=== PATIENT | male | born 1955 | race Caucasian/White ===

== ENCOUNTER → 2020-02-14 15:43 | Outpatient (BNVA) | payer OTHER, SELFPAY | PROVIDERS: Visit Provider Hospitalist | DX: Z76.89 Persons encountering health services in other specified circumstances (principal) ==

== ENCOUNTER → 2020-05-29 15:05 | Outpatient (BNVA) | payer OTHER, SELFPAY | PROVIDERS: PCP Internal Medicine; Visit Provider Hospitalist ==

== ENCOUNTER → 2020-07-19 15:05 | Outpatient (BNVA) | payer OTHER, SELFPAY | PROVIDERS: PCP Internal Medicine; Visit Provider Hospitalist ==

== ENCOUNTER → 2020-09-07 13:13 | Outpatient (BNVA) | payer OTHER, SELFPAY | PROVIDERS: PCP Internal Medicine; Visit Provider Hospitalist ==

== ENCOUNTER → 2021-03-08 15:30 | Outpatient (BNVA) | payer OTHER, SELFPAY | PROVIDERS: PCP Internal Medicine; Visit Provider Hospitalist ==

== ENCOUNTER → 2021-09-03 08:20 | Outpatient (BNVA) | payer OTHER, SELFPAY | PROVIDERS: PCP Internal Medicine; Visit Provider Hospitalist | DX: J44.9 Chronic obstructive pulmonary disease, unspecified (principal) ==

== ENCOUNTER → 2022-07-21 09:10 | Outpatient (BNVA) | payer OTHER, SELFPAY | PROVIDERS: PCP Internal Medicine; Visit Provider Hospitalist | DX: Z13.89 Encounter for screening for other disorder (principal) ==

== ENCOUNTER → 2022-09-04 15:26 | Outpatient (BNVA) | payer OTHER, SELFPAY | PROVIDERS: PCP Internal Medicine; Visit Provider Hospitalist | DX: J44.9 Chronic obstructive pulmonary disease, unspecified (principal); J30.9 Allergic rhinitis, unspecified | CPT/HCPCS: 94618 ==

== ENCOUNTER 2022-12-04 15:34 | Outpatient (REF) | payer OTHER, SELFPAY | END 2022-12-04 15:35 | disposition home or self-care (01) | LOC: HO.LAB 15:34 | PROVIDERS: PCP Internal Medicine; Visit Provider Hospitalist | DX: J44.9 Chronic obstructive pulmonary disease, unspecified (principal); J30.9 Allergic rhinitis, unspecified; Z79.899 Other long term (current) drug therapy | CPT/HCPCS: 94010; 99212 ==

== ENCOUNTER 2022-12-04 15:34 | Outpatient (AMB) | payer OTHER, SELFPAY ==
--- NOTE | 2022-12-04 15:42 | MHC.OFFVIS ---
Intake Vital Signs 12/04/22 15:45 Height 5 ft 7 in Weight 190 lb BMI 29.8 Pulse 64 Pulse Source Pulse Oximeter Pulse Oximetry (%) 97 Oxygen Delivery Method Room Air Intake Visit Reasons: COPD Personal Lines Account Executive Required: No Allergies Sulfa (Sulfonamide Antibiotics) Allergy (Mild, Verified 12/04/22 15:42) Dizziness and Upset Stomach HPI HPI Comments History of Present Illness Details The patient is a 67-year-old gentleman with a known history of asthma COPD overlap syndrome, chronic rhinitis. overall he had a good summer working outside. Usually his respiratory symptoms worsen during the winter time. Has had some intermittent coughing nonproductive in nature. Also has chest tightness and wheezing mild in severity. He has not had to use his rescue inhaler more than twice a week. Therefore, will start optimizing his respiratory therapy with his albuterol and budesonide nebulizer therapy as well as continue with the Symbicort. The patient has not had any recent imaging her blood work to review. 05/29/2020 The patient is a telephone visit today. The patient now has COVID-19 infection. He was placed on antibiotics and also Decadron. He did feel better while on the medicine. Completed the Co drawn he started to notice increasing shortness of breath. His major complaint is also significant fatigue moderate severity. He is sleeping more. I did reassure him that this is a common side effect after having COVID and he should continue to feel better with time. In the meantime he is using his inhaler more often. He felt the budesonide was effective for him. Therefore we will refill the prescription. Patient also needs to continue using his albuterol nebulizer. In the meantime the patient will continue a small dose of prednisone 10 mg for 2 weeks. I will also request that he undergo a chest x-ray and blood work to further address his ongoing symptoms. 07/19/2020 the patient has a telephone visit. The patient now has recovered from COVID. Overall he is doing okay. He is back to working in [employer]. He does have very physical job. Lately has been having episodes of burping and reflux disease along with worsening shortness of breath. When that happens he usually uses rescue inhaler with partial resolution of the symptoms. It appears to be happening more often. Because of the episodes he did start himself on prednisone. I advised him to stop the prednisone as is going to worsen his gastritis and reflux disease. In the meantime he has been taking acid suppressant medication including Protonix. He does about the reflux diet and is trying to watch what he eats and tries to minimize medication use. He is concerned about the potential osteopenia from the PPI. He continues on Symbicort twice a day and also has nebulized therapy with budesonide for additional corticosteroid therapy. The patient also has a speech correction assistant. I am concerned that this could be potentially cardiac in etiology specially with his GI symptoms masking a cardiac issue. He will call his speech correction assistant for an earlier evaluation. 09/07/2020 the patient is here for pulmonary follow-up visit. 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 His breathing still an issue with activity. He still working full-time mainly with [employer]. He did follow-up with cardiology. However, he could not complete the cardiac stress test due to an adverse reaction to the agent used. He will follow up with a different cardiac testing. In the meantime he in view of the persistent symptom of chest heaviness and shortness of breath with activity is not on reasonable for him to take a baby aspirin in the meantime. He seems to be responding well to the Symbicort. He also has a rescue inhaler that he uses about 2 times a week. 03/08/2021 the patient is here for a pulmonary follow-up visit. He has been having issues with shortness of breath and sometimes he gets gas pain and . Usually after several minutes the symptoms to subside. He does uses rescue inhaler as needed couple times a week. He continues uses Symbicort regularly. He has not required any prednisone. He did follow-up with cardiology in there were concerned about the severe aortic stenosis. They felt that he would benefit from a transcutaneous aortic valve replacement. However, when he went to the surgeon they are concerned because he did have a single-vessel coronary artery disease and felt that a surgical approach would be better. therefore, to get the final input he was referred to [place] for 2nd opinion. I do believe the patient should get pulmonary function studies. But, he wants to wait till he has his evaluation there in case they want to do all the testing in [place] which is very reasonable. In the meantime he is working in [employer]. I did request that he avoid straining his activity in any significant lifting. If he does develop increasing symptoms of the gas discomfort he is to consider stopping the work in case he is experiencing cardiac symptoms. 09/03/2021 the patient is here for pulmonary follow-up visit. His breathing is gotten little bit more worse. Does complaint of chest congestion mucus production. He does get relief from the Symbicort and the Spiriva. However, the are very expensive for him. He is willing to go to nebulized therapy to try that throughout the day to see if we can get him off the inhalers. In the meantime having some knee discomfort. He was working on cardiac rehab and started developing some swelling of his right knee. He is going to follow up with Orthopedics in order to likely have a cortisone injection. Patient does not have any recent imaging studies. He feels well after undergoing his aortic valve replacement. His breathing however about the same. 03/10/2022 the patient is here for a pulmonary follow-up visit. Continues to work full-time in [employer]. They denies any significant shortness of breath. He does uses nebulized therapy is inhalers in the morning prior to going to his work responsibilities. Usually he is able to continue the full day without any significant issues. The medication however is expensive for him. He also has a nebulizer. I will provide him with some samples of albuterol that I have available. Unfortunately do not have any other samples as far as inhalers. The patient can always seek to request from programs directly from the pharmaceutical companies. No recent x-rays or laboratories to review. He does follow up in [place] after his open heart surgery. Overall he states that his recovery has been going well. 09/04/2022 the patient is here for a pulmonary follow-up visit. The overall patient is still complaining of significant shortness of breath and chest tightness. We did try the new inhaler Breztri. The patient did not tolerated making cough more. Therefore he stopped it. He does respond better to the nebulized therapy. He has been using the DuoNebs between 3 to 4 times a day. This is okay for him to do but he is not using any inhaled steroids. He does have increased wheezing on examination. Moderate severity. He has increased coughing and chest congestion. He is wondering about a percussion vest. I did provide him with budesonide and will send additional prescription to the pharmacy. The patient also needs CPT with flutter valve. I did about having a row because that he could use. He is going to start using it especially every times use the nebulizer. He will come back in a few months. I am hoping that the addition of budesonide with DuoNeb along with CPT with flutter valve allows him to stay at [place]. If however he has any worsening symptoms he call the office so we can further evaluate. 12/04/2022 the patient is here for a pulmonary follow-up visit. She feels like is getting worse. The shortness of breath with minimal activity. He is requesting a placard form. We did do spirometry in the office. His FEV1 significantly decreased to 0.76 L. In regards of her respiratory therapy the patient has been using Symbicort. The other inhalers have not been effective for. Symbicort seems to work best and also his nebulized therapy. He had 1 location went to the beach and had a level setting some difficulty breathing had respiratory distress. EMS was called to the scene. The patient did improve after using his nebulizer. Does not a functional nebulizer at this time. He has been buying his daughters. Therefore, the provide him with a nebulizer before he left. To further optimize his respiratory therapy will have him get blood work. He has already had allergy testing in the past will go ahead and repeated. In view of the significant abnormal spirometry an obstructive ventilatory defect will also request pulmonary function studies. His last chest x-ray from July 2021 demonstrating no acute disease. Patient is wondering what other potential therapies he can consider specially since he feels it is getting worse. Explained to him that after reviewing the blood work will see if he is a candidate for biologic therapy. And could be a good candidate for lung volume reduction intervention based on his significant chronic bronchitis. [facility] Medical History (Updated 03/10/21 @ 21:25 by Morgan Brown MD) Aortic stenosis Asthma-COPD overlap syndrome Chronic allergic rhinitis COVID-19 GERD (gastroesophageal reflux disease) Family History (Updated 02/14/20 @ 21:11 by Morgan Brown MD) Other Asthma Social History (Updated 09/03/21 @ 08:43 by TEE Wilson) Patient Tobacco Use Status: Former Tobacco user Tobacco use type: Cigarette Years Smoked: 28 years Review of Systems Const Denies night sweats ENT Denies change in voice, Denies lip swelling, Denies mouth pain, Reports nasal congestion, Reports nasal discharge and Denies tongue swelling Card Denies chest pain, Denies dyspnea and Reports dyspnea on exertion Resp Reports chest congestion, Reports cough, Denies dyspnea, Reports dyspnea on exertion and Reports wheezing GI Reports belching, Reports bloating, Reports dyspepsia, Reports heartburn and Reports other (epigastric pain) Musc Reports as per HPI, Reports arthralgias and Reports joint swelling Neuro Denies Neuro-related abnormal movements Psych Denies no additional complaints Randal/Lymph Denies easy bleeding and Denies lymphadenopathy Aller/Immun Denies lip swelling, Denies tongue swelling and Reports wheezing Physical Exam Vital Signs: Last Vital Signs Pulse 64 12/04/22 15:45 Pulse Ox 97 12/04/22 15:45 Oxygen Delivery Method Room Air 12/04/22 15:45 BMI result Body Mass Index 29.8 Const General: alert Eyes Pupils: Equal, round and reactive pupils present Neck Neck: Yes normal visual inspection, Yes full ROM and Yes no lymphadenopathy Chest Chest palpation & inspection: normal inspection of the chest Resp Auscultation: no rales, rhonchi, wheezes and diminished lung sounds Cardio Rate: regular rate Rhythm: regular rhythm Heart sounds: S1 normal heart sound present, S2 normal heart sound present and Murmur heart sound present GI Palpation (GI): Soft to palpation and nontender Auscultation: normal bowel sounds General: Yes no CVA tenderness Back/Spine/Pelvis Back: no CVA tenderness Skin General skin exam: rashes and/or lesions noted Neuro Cranial nerves: Yes Equal, round and reactive pupils present Office Procedures Spirometry Testing Spirometry 12157- Spirometry Assessment & Plan Assessment & Plan (1) Asthma-COPD overlap syndrome: Code(s): J44.9 - Chronic obstructive pulmonary disease, unspecified (2) Chronic allergic rhinitis: Code(s): J30.9 - Allergic rhinitis, unspecified Plan Duoneb as needed continue Symbicort continue BUdesonide BID CPT with aerobika valve Needs a new nebulizer Bloodwork/allergy testing PFTs F/U 2-3 months Orders: Orders AMB Spirometry Testing 12/04/22 J44.9 - Chronic obstructive pulmonary disease, unspecified Complete Blood Count Auto Diff Today J30.9 - Allergic rhinitis, unspecified, J44.9 - Chronic obstructive pulmonary disease, unspecified Erythrocyte Sedimentation Rate Today J30.9 - Allergic rhinitis, unspecified, J44.9 - Chronic obstructive pulmonary disease, unspecified Immunoglobulin E Today J30.9 - Allergic rhinitis, unspecified, J44.9 - Chronic obstructive pulmonary disease, unspecified Immunoglobulin G Subclasses Today J30.9 - Allergic rhinitis, unspecified, J44.9 - Chronic obstructive pulmonary disease, unspecified Immunoglobulins,IgG IgA IgM Today J30.9 - Allergic rhinitis, unspecified, J44.9 - Chronic obstructive pulmonary disease, unspecified PFT pulmonary function test Today J30.9 - Allergic rhinitis, unspecified, J44.9 - Chronic obstructive pulmonary disease, unspecified Coding Level of Care Code Est Pt Level 4 (99913) Diagnoses Asthma-COPD overlap syndrome J44.9 Chronic allergic rhinitis J30.9 CPT Codes Spirometry - CPT: 45697- Spirometry ([id number]) Time Spent (min) 20
[2022-12-04 15:45] VITALS: PULSE 64; O2SAT 97; BMI 29.8
== END 2022-12-04 16:17 | disposition home or self-care (01) ==
PROVIDERS: PCP Internal Medicine; Visit Provider Hospitalist
DX: J44.9 Chronic obstructive pulmonary disease, unspecified (principal); J30.9 Allergic rhinitis, unspecified
CPT/HCPCS: 94010; 99214

== ENCOUNTER 2023-01-02 14:52 | Outpatient (REF) | payer OTHER, SELFPAY ==
--- NOTE | 2023-01-02 16:30 | PFT_ITS ---
Forced vital capacity 49%, FEV1 25%, FEV1/FVC ratio is 37. [id number] 10%, residual volume 20%. Post bronchodilator therapy, there is a marked improvement in all flow volumes. Total lung capacity 95%. Residual volume 179%. Diffusion capacity 70%. CONCLUSION: Very severe obstructive airway disorder with evidence of air trapping. There is significant improvement after bronchodilator therapy. These results are consistent with asthma/chronic obstructive pulmonary disease overlap syndrome. Clinical correlation recommended. Pat Chow MD MSB/MODL / [phone]
== END 2023-01-02 14:53 | disposition home or self-care (01) ==
LOC: HO.RESP 14:52
PROVIDERS: PCP Internal Medicine; Visit Provider Hospitalist
DX: J44.9 Chronic obstructive pulmonary disease, unspecified (principal); J30.9 Allergic rhinitis, unspecified
CPT/HCPCS: 94010; 94727; 94729

== ENCOUNTER → 2023-01-02 16:30 | Outpatient (BNV) | payer OTHER, SELFPAY | PROVIDERS: PCP Internal Medicine; Visit Provider Internal Medicine | DX: J44.9 Chronic obstructive pulmonary disease, unspecified (principal) | CPT/HCPCS: 94060; 94727; 94729 ==

== ENCOUNTER 2023-03-06 13:51 | Outpatient (AMB) | payer OTHER, SELFPAY ==
[2023-03-06 14:16] VITALS: PULSE 56; O2SAT 97; BMI 29.7
--- NOTE | 2023-03-06 14:16 | A.OFFVIS_ITS ---
Intake Vital Signs 03/06/23 14:16 Height 5 ft 7 in Weight 189 lb 13.088 oz BMI 29.7 Pulse 56 Pulse Source Pulse Oximeter Pulse Oximetry (%) 97 Oxygen Delivery Method Room Air Intake Visit Reasons: COPD Reed Polisher Required: No Allergies Sulfa (Sulfonamide Antibiotics) Allergy (Mild, Verified 03/06/23 14:17) Dizziness and Upset Stomach HPI HPI Comments History of Present Illness Details The patient is a 67-year-old gentleman with a known history of asthma COPD overlap syndrome, chronic rhinitis. overall he had a good summer working outside. Usually his respiratory symptoms worsen during the winter time. Has had some intermittent coughing nonproductive in nature. Also has chest tightness and wheezing mild in severity. He has not had to use his rescue inhaler more than twice a week. Therefore, will start optimizing his respiratory therapy with his albuterol and budesonide nebulizer therapy as well as continue with the Symbicort. The patient has not had any recent imaging her blood work to review. 09/04/2022 the patient is here for a pulm onary follow-up visit. The overall patient is still complaining of significant shortness of breath and chest tightness. We did try the new inhaler Breztri. The patient did not tolerated making cough more. Therefore he stopped it. He does respond better to the nebulized therapy. He has been using the DuoNebs between 3 to 4 times a day. This is okay for him to do but he is not using any inhaled steroids. He does have increased wheezing on examination. Moderate severity. He has increased coughing and chest congestion. He is wondering about a percussion vest. I did provide him with budesonide and will send additional prescription to the pharmacy. The patient also needs CPT with flutter valve. I did about having a row because that he could use. He is going to start using it especially every times use the nebulizer. He will come back in a few months. I am hoping that the addition of budesonide with DuoNeb along with CPT with flutter valve allows him to stay at [place]. If however he has any worsening symptoms he call the office so we can further evaluate. 12/04/2022 the patient is here for a pulmonary follow-up visit. She feels like is getting worse. The shortness of breath with minimal activity. He is requesting a placard form. We did do spirometry in the office. His FEV1 significantly decreased to 0.76 L. In regards of her respiratory therapy the patient has been using Symbicort. The other inhalers have not been effective for. Symbicort seems to work best and also his nebulized therapy. He had 1 location went to the beach and had a level setting some difficulty breathing had respiratory distress. EMS was called to the scene. The patient did improve after using his nebulizer. Does not a functional nebulizer at this time. He has been buying his daughters. Therefore, the provide him with a nebulizer before he left. To further optimize his respiratory therapy will have him get blood work. He has already had allergy testing in the past will go ahead and repeated. In view of the significant abnormal spirometry an obstructive ventilatory defect will also request pulmonary function studies. His last chest x-ray from July 2021 demonstrating no acute disease. Patient is wondering what other potential therapies he can consider specially since he feels it is getting worse. Explained to him that after reviewing the blood work will see if he is a candidate for biologic therapy. And could be a good candidate for lung volume reduction intervention based on his significant chronic bronchitis. 03/06/2023 the patient is here for pulnel luis follow-up visit. The patient is feeling a lot better. He went to [place] he was placed on Stiolto. Seems to be tolerating the inhaler very well. He is also using the budesonide at nighttime. Also seems to be helping as well. He also started Daliresp. He is tolerating the Daliresp 250 mcg dose. Will go ahead increase it to the 500 mcg dose to make it more therapeutic. He has also lost some weight that is also going to help his breathing. The patient continues to have some wheezing on examination although better. Again he is aware that he has severe obstruction of the airways. [facility] Medical History (Updated 03/10/21 @ 21:25 by Morgan Brown MD) Aortic stenosis COVID-19 Chronic allergic rhinitis GERD (gastroesophageal reflux disease) Asthma-COPD overlap syndrome Family History (Updated 02/14/20 @ 21:11 by Morgan Brown MD) Other Asthma Social History (Updated 09/03/21 @ 08:43 by Saba Edwards [facility]) Patient Tobacco Use Status: Former Tobacco user Tobacco use type: Cigarette Years Smoked: 28 years Review of Systems Const Denies night sweats ENT Denies change in voice, Denies lip swelling, Denies mouth pain, Reports nasal congestion, Reports nasal discharge and Denies tongue swelling Card Denies chest pain, Denies dyspnea and Reports dyspnea on exertion Resp Denies chest congestion, Reports cough, Denies dyspnea, Reports dyspnea on exertion and Reports wheezing GI Reports no additional complaints, Reports dyspepsia, Reports heartburn and Reports other (epigastric pain) Musc Reports as per HPI, Reports arthralgias and Reports joint swelling Neuro Denies Neuro-related abnormal movements Psych Denies no additional complaints Randal/Lymph Denies easy bleeding and Denies lymphadenopathy Aller/Immun Denies lip swelling, Denies tongue swelling and Reports wheezing Physical Exam Vital Signs: Last Vital Signs Pulse 56 03/06/23 14:16 Pulse Ox 97 03/06/23 14:16 Oxygen Delivery Method Room Air 03/06/23 14:16 BMI result Body Mass Index 29.7 Const General: alert Eyes Pupils: Equal, round and reactive pupils present Neck Neck: Yes normal visual inspection, Yes full ROM and Yes no lymphadenopathy Chest Chest palpation & inspection: normal inspection of the chest Resp Auscultation: no rales, no rhonchi, wheezes and diminished lung sounds Cardio Rate: regular rate Rhythm: regular rhythm Heart sounds: S1 normal heart sound present, S2 normal heart sound present and Murmur heart sound present GI Palpation (GI): Soft to palpation and nontender Auscultation: normal bowel sounds General: Yes no CVA tenderness Back/Spine/Pelvis Back: no CVA tenderness Skin General skin exam: rashes and/or lesions noted Neuro Cranial nerves: Yes Equal, round and reactive pupils present Assessment & Plan Assessment & Plan (1) Asthma-COPD overlap syndrome: Code(s): J44.9 - Chronic obstructive pulmonary disease, unspecified (2) Chronic allergic rhinitis: Code(s): J30.9 - Allergic rhinitis, unspecified Plan Duoneb as needed continue stiolto continue BUdesonide daily CPT with aerobika valve increase Daliresp 500mcg daily F/U 6 months Medications: New roflumilast (Daliresp) 500 mcg PO DAILY 30 days 30 tabs 5RF tiotropium-olodaterol 2.5-2.5 mcg/actuation (Stiolto Respimat) 2 puffs inhalation DAILY 90 days 3 ea 3RF Coding Level of Care Code Est Pt Level 4 (73323) Diagnoses Asthma-COPD overlap syndrome J44.9 Chronic allergic rhinitis J30.9 Time Spent (min) 16
== END 2023-03-06 14:41 | disposition home or self-care (01) ==
PROVIDERS: PCP Internal Medicine; Visit Provider Hospitalist
DX: J44.9 Chronic obstructive pulmonary disease, unspecified (principal); J30.9 Allergic rhinitis, unspecified
CPT/HCPCS: 99214

== ENCOUNTER → 2023-03-06 13:51 | Outpatient (BNVA) | payer OTHER, SELFPAY | PROVIDERS: PCP Internal Medicine; Visit Provider Hospitalist ==

== ENCOUNTER 2024-04-01 14:25 | Outpatient (AMB) | payer OTHER, SELFPAY ==
[2024-04-01 14:44] VITALS: BP 124/70; PULSE 65; O2SAT 99; BMI 30.5
--- NOTE | 2024-04-01 14:44 | MHC.OFFVIS ---
Vital Signs 04/01/24 14:44 Height 5 ft 7 in Weight 195 lb BMI 30.5 BP 124/70 Blood Pressure Location Lt brachial Position Sitting Pulse 65 Pulse Source Pulse Oximeter Pulse Oximetry (%) 99 Oxygen Delivery Method Room Air Intake Visit Reasons: COPD Application Development Consultant Required: No Allergies Sulfa (Sulfonamide Antibiotics) Allergy (Mild, Verified 04/01/24 14:47) Dizziness and Upset Stomach HPI Comments Details: The patient is a 68-year-old gentleman with a known history of asthma COPD overlap syndrome, chronic rhinitis. overall he had a good summer working outside. Usually his respiratory symptoms worsen during the winter time. Has had some intermittent coughing nonproductive in nature. Also has chest tightness and wheezing mild in severity. He has not had to use his rescue inhaler more than twice a week. Therefore, will start optimizing his respiratory therapy with his albuterol and budesonide nebulizer therapy as well as continue with the Symbicort. The patient has not had any recent imaging her blood work to review. 09/04/2022 the patient is here for a pulmonary follow-up visit. The overall patient is still complaining of significant shortness of breath and chest tightness. We did try the new inhaler Breztri. The patient did not tolerated making cough more. Therefore he stopped it. He does respond better to the nebulized therapy. He has been using the DuoNebs between 3 to 4 times a day. This is okay for him to do but he is not using any inhaled steroids. He does have increased wheezing on examination. Moderate severity. He has increased coughing and chest congestion. He is wondering about a percussion vest. I did provide him with budesonide and will send additional prescription to the pharmacy. The patient also needs CPT with flutter valve. I did about having a row because that he could use. He is going to start using it especially every times use the nebulizer. He will come back in a few months. I am hoping that the addition of budesonide with DuoNeb along with CPT with flutter valve allows him to stay at [place]. If however he has any worsening symptoms he call the office so we can further evaluate. 12/04/2022 the patient is here for a pulmonary follow-up visit. She feels like is getting worse. The shortness of breath with minimal activity. He is requesting a placard form. We did do spirometry in the office. His FEV1 significantly decreased to 0.76 L. In regards of her respiratory therapy the patient has been using Symbicort. The other inhalers have not been effective for. Symbicort seems to work best and also his nebulized therapy. He had 1 location [place] to the beach and had a level setting some difficulty breathing had respiratory distress. EMS was called to the scene. The patient did improve after using his nebulizer. Does not a functional nebulizer at this time. He has been buying his daughters. Therefore, the provide him with a nebulizer before he left. To further optimize his respiratory therapy will have him get blood work. He has already had allergy testing in the past will go ahead and repeated. In view of the significant abnormal spirometry an obstructive ventilatory defect will also request pulmonary function studies. His last chest x-ray from July 2021 demonstrating no acute disease. Patient is wondering what other potential therapies he can consider specially since he feels it is getting worse. Explained to him that after reviewing the blood work will see if he is a candidate for biologic therapy. And could be a good candidate for lung volume reduction intervention based on his significant chronic bronchitis. 03/06/2023 the patient is here for pulmonary follow-up visit. The patient is feeling a lot better. He went to [place] he was placed on Stiolto. Seems to be tolerating the inhaler very well. He is also using the budesonide at nighttime. Also seems to be helping as well. He also started Daliresp. He is tolerating the Daliresp 250 mcg dose. Will go ahead increase it to the 500 mcg dose to make it more therapeutic. He has also lost some weight that is also going to help his breathing. The patient continues to have some wheezing on examination although better. Again he is aware that he has severe obstruction of the airways. 04/01/2024 the patient is here for a pulmonary follow-up visit. Overall the patient has been doing well. Although recently he had an episode of tremors and fatigue along with dyspnea. He went to see his human resources consultant who was diagnosed with a heart block. He had an urgent pacemaker placement at [facility]. Then they maintain they washed were him for because of the tremors. Since that she has been exercising on treadmill. He had 1 episodes where heart rate increased became concerned. In the office we did go for a walking oximetry and the patient maintain a pulse ox within normal limits in the heart rate did increase from 75 to about 90. My question is if this is from the pacemaker if he is actually able to have a normal sinus mechanism. Specially if the heart block was transient. Still from a respiratory status he continues on the Stiolto. Will go ahead and drop the Daliresp to 250 mcg since the 500 causes him to have some difficulty sleeping. If he has any difficulty with his breathing as we cut it down he can always call to go back up to the therapeutic dose. He will continue with Stiolto as prescribed. He also has his nebulized therapy. Will follow-up in 8-10 months. If she has any issues prior to that he will call for an earlier assessment. [facility] Medical History (Updated 03/10/21 @ 21:25 by Morgan Brown MD) Aortic stenosis COVID-19 Chronic allergic rhinitis GERD (gastroesophageal reflux disease) Asthma-COPD overlap syndrome Family History (Updated 02/14/20 @ 21:11 by Morgan Brown MD) Other Asthma Social History Patient Tobacco Use Status: Former Tobacco user Tobacco use type: Cigarette Years Smoked: 28 years Review of Systems Const Denies night sweats ENT Denies change in voice, Denies lip swelling, Denies mouth pain, Reports nasal congestion, Reports nasal discharge and Denies tongue swelling Card Denies chest pain, Denies dyspnea and Reports dyspnea on exertion Resp Denies chest congestion, Reports cough, Denies dyspnea, Reports dyspnea on exertion and Reports wheezing GI Reports no additional complaints, Reports dyspepsia, Reports heartburn and Reports other (epigastric pain) Musc Reports as per HPI, Reports arthralgias and Reports joint swelling Neuro Denies Neuro-related abnormal movements Psych Denies no additional complaints Randal/Lymph Denies easy bleeding and Denies lymphadenopathy Aller/Immun Denies lip swelling, Denies tongue swelling and Reports wheezing Physical Exam Vital Signs: Last Vital Signs Pulse 65 04/01/24 14:44 BP 124/70 04/01/24 14:44 Pulse Ox 99 04/01/24 14:44 Oxygen Delivery Method Room Air 04/01/24 14:44 BMI result Body Mass Index 30.5 Const General: alert Eyes Pupils: Equal, round and reactive pupils present Neck Neck: Yes normal visual inspection, Yes full ROM and Yes no lymphadenopathy Chest Chest palpation & inspection: normal inspection of the chest Resp Auscultation: no rales, no rhonchi, no wheezes and diminished lung sounds Cardio Rate: regular rate Rhythm: regular rhythm Heart sounds: S1 normal heart sound present, S2 normal heart sound present and Murmur heart sound present GI Palpation (GI): Soft to palpation and nontender Auscultation: normal bowel sounds General: Yes no CVA tenderness Back/Spine/Pelvis Back: no CVA tenderness Skin General skin exam: rashes and/or lesions noted Neuro Cranial nerves: Yes Equal, round and reactive pupils present Assessment & Plan Assessment & Plan (1) Asthma-COPD overlap syndrome: Code(s): J44.9 - Chronic obstructive pulmonary disease, unspecified Category: Medical (2) Chronic allergic rhinitis: Code(s): J30.9 - Allergic rhinitis, unspecified Category: Medical Plan Duoneb as needed continue stiolto BUdesonide daily CPT with aerobika valve Daliresp, will decrease to 250mcg daily becuase insomnia adverse effect F/U 8-10 months Medications: New roflumilast (Daliresp) 250 mcg PO DAILY 30 tabs 11RF 30 days J44.9 - Chronic obstructive pulmonary disease, unspecified Refilled tiotropium-olodaterol 2.5-2.5 mcg/actuation (Stiolto Respimat) 2 puffs inhalation DAILY 3 ea 3RF 90 days Discontinued roflumilast (Daliresp) Discontinued Reason: Doctor's Order 500 mcg PO DAILY 30 days 30 tabs 5RF Coding Level of Care Code Est Pt Level 4 (45317) Diagnoses Asthma-COPD overlap syndrome J44.9 Chronic allergic rhinitis J30.9 Time Spent (min) 17
--- OUTSIDE RECORDS SUMMARY | 2024-04-06 10:18 | XMS_ITS | Data Portability ---
Author Organization [place] - [facility], Allergy Address [address] [place] [id number] Care Team Providers Care Powder Carrier Name Role Phone VERA GAN Primary Care Provider Assessment No assessment recorded. Plan of Treatment Reminders Order Date Submit Date Provider Last Modified By Organization Details Last Modified Time Details Appointments Hearing Test 2023 09:30A M Hearing Test Not available Not available Not available FOLLOW UP 30 2023 10:00A M POWER DAVISON PA-C Not available Not available Not available Lab None recorded. Referral None recorded. Procedures None recorded. Surgeries None recorded. Imaging None recorded. Medication Orders fluticaso ne propionat e 50 mcg/actua tion nasal spray,wilbur pension 2023 024 [facility]acy #[id number], [address] [place], [address], 02/04/2024 10:01:03 Patient TargetsNo targets recorded. Patient InstructionsNo instructions recorded. Reason for Referral None Reported. Problems Name Problem SNOMED Code Status Onset Date Resolution Date Notes Provider Name and Address Organization Details Recorded Time Subjectiv e tinnitus 79472873 Active 2014 Tinnitus; Note: Date Diagnosed : 12/06/2014 3:12 PM (388.31) Not Available [facility] 4 02:47:40 Mass of neck 812953848 Active 2017 Localized swelling, mass and lump, neck; Note: Date Diagnosed : 11/04/2017 5:20 PM (R22.1) Not Available [facility] 4 02:47:39 Neck swelling 450744103 Active 2017 Localized swelling, mass and lump, neck; Note: Date Diagnosed : 11/04/2017 5:20 PM (R22.1) Not Available [facility] 4 02:47:39 Allergic rhinitis caused by pollen 00599719 Active 2014 Allergic rhinitis: Pollinosi s; Note: Date Diagnosed : 12/06/2014 2:41 PM (477.0) Not Available [facility] 4 02:47:35 Sensorine ural hearing loss of bilateral ears 202821834 Active 2014 Sensorine ural HL, bilateral ; Note: Date Diagnosed : 12/06/2014 3:12 PM (389.18) Not Available [facility] 4 02:47:38 Localized swelling, mass and lump, neck Active 2014 Swelling/ mass, neck; Note: Date Diagnosed : 12/06/2014 2:41 PM (784.2) Not Available [facility] 4 02:47:39 Asthma 602560108 Active 2014 Asthma; Note: Date Diagnosed : 12/06/2014 2:41 PM (493.90) Not Available [facility] 4 02:47:37 Allergic rhinitis 27121218 Active 2017 Other allergic rhinitis; Note: Date Diagnosed : 11/04/2017 4:15 PM (J30.89) Not Available [facility] 4 02:47:36 Bilateral disorder of Eustachia n tubes 96684373607 39972 Active 2017 Other specified disorders of Eustachia n tube, bilateral ; Note: Date Diagnosed : 11/04/2017 4:15 PM (H69.83) Not Available [facility] 4 02:47:36 Nasal congestio n 19757066 Active 2023 LISA PASTOR MD [address] [place] [address], [place], [phone] , [facility] - [facility] 4 09:53:09 Recurrent acute sinusitis 124583404 Active 2023 LISA PASTOR MD [address] [place] [address],[place] [address], [place], [address] , [facility] - [facility] 4 09:53:15 Bilateral tinnitus 11526855564 02 Active 2023 LISA PASTOR MD [address] [place] [address], [place], [address] , [facility] 4 10:00:28 Problem Notes None recorded. Procedures Surgical History Date Name Laterality Status Provider Name and Address Organization Details Recorded Time 02/04/2024 NasalEndos copy_DP completed LISA PASTOR MD [address] [place] [address], [place], [phone], [facility] 02/04/2024 10:00:05 Imaging Results None recorded. Procedure Notes None recorded. Medical Equipment None Reported. Allergies Allergen ID Allergen Name Allergen Category Reaction Reaction Severity Criticality Documentation Date Start Date Code Code System Note Provider Name and Address Organization Details Recorded Time 807598 Substance with sulfonami de structure and antibacte rial mechanism of action (substanc e) medicatio n other Not available Not available 09/08/2023 18889 8003 SNOMED React ion: unkno wn, unspe cifie d;; Not Available [facility] 4 01:16:46 Medications Name Sig Start Date Stop Date Status Note LastModified by Organization Details LastModified Time Singulair 10 mg tablet Take 1 tablet by mouth once a day active Medicati on ID: [id number] D uration Value: 30 Brand Name: Harshad naik Send Method: E-Prescr ibed Sub s Allowed: subs OK Medic ationGen ericName : Harshad r Not Available Not Available Not Available amoxicill in 500 mg capsule TAKE 2 CAPSULES BY MOUTH TO START THEN 1 CAPSULE EVERY 8 HOURS UNTIL FINISHED active Not Available Not Available No t Available prednison e 10 mg tablet TAKE 6 TABS X3 DAYS, 5 TABS X3 DAYS, 4 TABS X3 DAYS, 3 TABS X3 DAYS, 2 TABS X3 DAYS, 1 TAB X3 DAYS active Not Available Not Available No t Available doxycycli ne hyclate 100 mg capsule TAKE 1 CAPSULE BY MOUTH TWICE A DAY FOR 10 DAYS active Not Available Not Available No t Available metoprolo l succinate ER 50 mg tablet,ex tended release 24 hr TAKE 1 TABLET BY MOUTH EVERY DAY active Not Available Not Available No t Available metoprolo l succinate ER 100 mg tablet,ex tended release 24 hr TAKE 1 TABLET BY MOUTH EVERY DAY active Not Available Not Available No t Available clopidogr el 75 mg tablet TAKE 1 TABLET BY MOUTH EVERY DAY active Not Available Not Available No t Available peg-elect rolyte solution 420 gram oral solution DRINK 240 ML BY MOUTH EVERY 10 MINUTES active Not Available Not Available No t Available aspirin 81 mg tablet,de layed release TAKE 1 TABLET BY MOUTH EVERY DAY active Not Available Not Available No t Available cefadroxi l 500 mg capsule TAKE 1 CAPSULE BY MOUTH EVERY DAY active Not Available Not Available No t Available alprazola m 0.25 mg tablet TAKE 1 TABLET BY MOUTH EVERY DAY active Not Available Not Available No t Available pantopraz ole 40 mg tablet,de layed release TAKE 1 TABLET BY MOUTH EVERY DAY active Not Available Not Available No t Available mometason e 50 mcg/actua tion nasal spray USE 2 SPRAYS INTO EACH NOSTRIL DAILY active Not Available Not Available No t Available budesonid e 0.5 mg/2 mL suspensio n for nebulizat ion USE 1 VIAL VIA NEB TWICE A DAY active Not Available Not Available No t Available mupirocin 2 % topical ointment APPLY SMALL AMOUNT TO SCALP TWICE DAILY REQUIRED . active Not Available Not Available No t Available lotepredn ol etabonate 0.5 % eye drops,wilbur pension PLEASE SEE ATTACHED FOR DETAILED DIRECTIO NS active Not Available Not Available No t Available azelastin e 137 mcg (0.1 %) nasal spray Inhale 2 spray into both nostrils twice a day as directed 2017 active Medicati on ID: [id number] P caitlyn cornelius By Name: Koby Gabriel MD Brand Name: azelasti oblivar Send Method: E-Prescr ibed Sub s Allowed: subs OK Medic ationGen ericName : azelasti ne Not Available Not Available Not Available ipratropi um bromide 42 mcg (0.06 %) nasal spray INSTILL 1 SPRAY IN BOTH NOSTRILS 3 TIMES DAILY active Not Available Not Available No t Available fluticaso ne propionat e 50 mcg/actua tion nasal spray,wilbur pension SPRAY 1 SPRAY BY INTRANAS AL ROUTE EVERY DAY active Not Available Not Available No t Available Hibiclens 4 % topical liquid APPLY TWICE A DAY TO BOTH HANDS FOR 10 DAYS DIRECTED active Not Available Not Available No t Available amoxicill in 875 mg-potass ium clavulana te 125 mg tablet TAKE 1 TABLET BY MOUTH EVERY 12 HOURS FOR 10 DAYS active Not Available Not Available No t Available rosuvasta tin 40 mg tablet TAKE 1 TABLET BY MOUTH EVERY DAY active Not Available Not Available No t Available Crestor 10 mg tablet 2014 active Medicati on ID: [id number] Du ration Value: 30 Brand Name: Crestor Send Method: E-Prescr ibed Sub s Allowed: subs OK Speci al Instruct ion: TAKE 1 TABLET BY MOUTH DAILY AT BEDTIME Medicati onGeneri cName: Crestor Not Available Not Available Not Available albuterol sulfate 11/04 completed Medicati on ID: [id number] Du ration Value: 30 Reason: () Brand Name: ALBUTERO L SULFATE Send Method: E-Prescr ibed Sub s Allowed: subs OK Medic ationGen ericName : ALBUTERO L SULFATE Not Available Not Available Not Available roflumila st 500 mcg tablet TAKE 1 TABLET BY MOUTH DAILY active Not Available Not Available No t Available Combivent Respimat 20 mcg-100 mcg/actua tion solution for inhalatio n 11/04 completed Medicati on ID: [id number] Du ration Value: 30 Reason: () Brand Name: Combiven t Respimat Send Method: E-Prescr ibed Sub s Allowed: subs OK Speci al Instruct ion: 1 PUFF(S) 4 TIMES A DAY INHALED 30 DAY(S) M alejandro Julioic Name: Combiven t Respimat Not Available Not Available Not Available Stiolto Respimat 2.5 mcg-2.5 mcg/actua tion solution for inhalatio n INHALE 2 PUFFS BY MOUTH INTO THE LUNGS DAILY active Not Available Not Available No t Available roflumila st 250 mcg tablet TAKE 1 TABLET BY MOUTH EVERY DAY active Not Available Not Available No t Available Vitals Date Recorded Body height Body mass index (BMI) Body weight Provider Name and Address Organization Details Last Updated DateTime 02/04/2024 170.18 cm 29.4 kg/m2 60995.37 g Camilo Pulido [place] - [facility] 02/04/2024 09:38:44 Social History None recorded. Functional Status None recorded. Mental Status None recorded. Family History Nothing Reported. Medical History No medical history recorded. Past Encounters Encounter ID Performer Location Encounter Start Date Encounter Closed Date Diagnosis/Indication Diagnosis SNOMED-CT Code Diagnosis ICD10 Code [id number] LISA PASTOR MD [facility] on [address] [place] [address] 02/04/2024 08:49:33 02/04/2024 10:04:57 Nasal congestion 95541455 R09.81 Recurrent acute sinusitis 450771904 J01.91 Bilateral tinnitus 11478 41782 102 H93.13 Health Concerns Section Related Observation LastModified by Organization Detai ls LastModified Time None Recorded Concern Status LastModified by Organization Details LastModified Time None Recorded Advance Directives Directive None Recorded Payers Encounter Date Sequence Insurance Name Policy Number Policy Prince Covered Member ID Prince Member ID Guarantor Name 02/04/2024 1 [facility] [id number] Palomo Nieves [id number] Palomo Nieves Notes Date Note Type Note Provider Name and Address Organization Details Recorded Time 02/04/2024 text/html Has bilateral tinnitus for years. Has noted gradual hearing loss over time. 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 He reports nasal congestion and pressure in the am which improves during the day. He sleeps in a recliner. No hx of sinus surgery. Has been treated 1-2 times in the last year with amox for sinusitis. Ipratropium he uses but doesn't help. He has tried mometasone but stopped because of epistaxis. He does not smoke. LISA PASTOR MD [address] [place] [address], [place], [address], [facility] - [facility] 02/04/2024 10:12:26
--- OUTSIDE RECORDS SUMMARY | 2024-04-06 10:18 | XMS_ITS | Continuity of Care Document ---
Author Organization [facility] Address [address] [place] [address]- Care Team Providers Care Assembler [employer] [facility] Name Role Phone Benjamín Lopes MD Primary Care Physician Encounter [facility] Date(s): 03/09/24 - 03/16/24 [facility] [address] [place] [address]- Attending Physician: Benjamín Lopes MD Encounter Type: Office Visit Allergies, Adverse Reactions, Alerts Substance Criticality Severity Reaction Reaction Severity Status sulfa drugs Active Zithromax Active Lipitor Active Immunizations Given and Recorded Vaccine Date Status Refusal Reason RSV vaccine preF3, recombinant 02/21/23 Recorded SARS-CoV-2(COVID-19)mRNA-LNP vac([id number]) 02/07/23 Recorded influenza virus vaccine, inactivated 02/06/23 Abel rded influenza virus vaccine, inactivated 01/31/22 Abel rded influenza virus vaccine, inactivated 02/13/21 Abel rded influenza virus vaccine, inactivated 02/10/20 Give n influenza virus vaccine, inactivated 01/31/19 Abel rded influenza virus vaccine, inactivated 01/24/19 Abel rded influenza virus vaccine, inactivated 12/24/17 Abel rded influenza virus vaccine, inactivated 01/29/17 Give n influenza virus vaccine, inactivated 01/31/16 Give n influenza virus vaccine, inactivated 1 03/28/06 Gi thuy [id number] bivalent booster vax 01/31/22 Recorded SARS-CoV-2 (COVID-19) mRNA-1273 vaccine 09/13/21 R ecorded SARS-CoV-2 (COVID-19) mRNA-1273 vaccine 02/22/21 R ecorded SARS-CoV-2 (COVID-19) mRNA-1273 vaccine 06/13/20 R ecorded SARS-CoV-2 (COVID-19) mRNA-1273 vaccine 06/04/20 R ecorded SARS-CoV-2 (COVID-19) mRNA-1273 vaccine 05/17/20 R ecorded SARS-CoV-2 (COVID-19) mRNA-1273 vaccine 05/04/20 R ecorded Afluria (oldterm) 01/29/18 Recorded tetanus/diphtheria/pertussis, acel(Tdap) 07/02/16 Given pneumococcal 23-valent vaccine 06/03/16 Given diphtheria-tetanus toxoids (DT) 2 04/09/06 Given 1Admin Note: [employer] manufacturers. no contraindications per patient 2Admin Note: in ED Medications ALPRAZolam 0.25 mg oral tablet 0.25 mg, 1, tablet, By Mouth, Daily, for 30 days, # 30 tablet, Refills 1, Tot. Refills 1, Acute 03/25/24 1:41:00 PM EST, 01/25/24 1:41:00 PM EDT, Route to Pharmacy Electronically, [facility]/pharmacy #[id number], Partial fill upon patient request if the prescription is for a schedule II opioid drug., 168, cm, 01/25/24 13:25:00 EDT, Height, 89.4, kg, 07/28/23 0:09:00 EDT, Dry Weight Start Date: 01/25/24 Stop Date: 03/25/24 Status: Ordered Quantity: 30.0 Unit: tablet Repeat number: 2 aspirin 325 mg oral tablet 325 mg, 1, tablet, By Mouth, Every 4 hours, # 84 tablet, Refills 0, Tot. Refills 0, Maintenance, 05/20/22 2:59:00 PM EST, Route to Pharmacy Electronically, [facility]/pharmacy #[id number], Partial fill upon patient request if the prescription is for a schedule II opioid drug., 168, cm, 05/20/22 7:41:00 EST, Height, 87.6, kg, 05/16/22 17:04:00 EST, Dry Weight Start Date: 05/20/22 Status: Ordered Quantity: 84.0 Unit: tablet Repeat number: 1 ipratropium nasal 42 mcg/inh spray 1 sprays = 42 mcg, Nares, Both, 3 times a day, # 1 each, 5 Refills, Maintenance, 01/25/24 1:38:00 PMEDT, [facility]/pharmacy #[id number], Partial fill upon patient request if the prescription is for a schedule IIopioid drug., 1 sprays Nares, Both 3 times a day, 168, cm, 01/25/24 13:25:00 EDT, Height, 89.4, kg,07/28/23 0:09:00 EDT, Dry Weight Start Date: 01/25/24 Status: Ordered Quantity: 1.0 Unit: each Repeat number: 6 metoprolol 100 mg oral tablet, extended release 100 mg, 1, tablet, By Mouth, Daily, Refills 0, Maintenance, 08/23/21 6:52:00 PM EDT, Partial fill upon patient request if the prescription is for a schedule II opioid drug. Start Date: 08/23/21 Status: Ordered Repeat number: 1 pantoprazole 40 mg oral delayed release tablet 1 tablet = 40 mg, By Mouth, Daily, # 30 tablet, 5 Refills, Maintenance, 09/08/23 12:47:00 PM EDT, ECTablet, 168, cm, 09/07/23 13:24:00 EDT, Height, 89.4, kg, 07/28/23 0:09:00 EDT, Dry Weight Start Date: 09/08/23 Status: Ordered Quantity: 30.0 Unit: tablet Repeat number: 6 ProAir HFA 90 mcg/inh inhalation aerosol with adapter 1, puffs, Inhalation, Every 4 hours, PRN, # 1 each, Refills 0, Tot. Refills 0, Maintenance, 04/29/19 10:28:00 AM EST, Route to Pharmacy Electronically, [id number], [facility]/pharmacy #[id number], 169, cm, 04/28/19 11:27:00 EST, Height, 92.5, kg, 07/16/17 9:56:00 EDT, Dry Weight Start Date: 04/29/19 Status: Ordered Quantity: 1.0 Unit: each Repeat number: 1 roflumilast 500 mcg oral tablet 1 tablet = 500 mcg, By Mouth, Daily, 0 Refills, Maintenance, 07/27/23 10:36:00 PM EDT, Partial fill upon patient request if the prescription is for a schedule II opioid drug. Start Date: 07/27/23 Status: Ordered Repeat number: 1 rosuvastatin 40 mg oral tablet 1 tablet = 40 mg, By Mouth, Daily, changed from 20 mg tablets, # 90 tablet, 0 Refills, Maintenance,08/23/21 7:18:00 AM EDT, Tablet, Partial fill upon patient request if the prescription is for a schedule II opioid drug. Start Date: 08/23/21 Status: Ordered Quantity: 90.0 Unit: tablet Repeat number: 1 Stiolto Respimat 60 ACT 2.5 mcg-2.5 mcg/inh inhalation aerosol 2 puffs, Inhalation, Every 24 hours, 0 Refills, Maintenance, 01/25/24 1:45:00 PM EDT, Aerosol, Partial fill upon patient request if the prescription is for a schedule II opioid drug. Start Date: 01/25/24 Status: Ordered Repeat number: 1 Problem List Condition Confirmation Course Effective Dates Status H ealth Status Informant ADD - Attention deficit disorder Confirmed 1997 Active Aortic stenosis 1 Confirmed Active Asthma Confirmed Active COPD with asthma Confirmed Active Pacemaker (placed at [facility] August 2023 for complete heart block) Confirmed Active Gastro-esophageal reflux disease Confirmed Active S/P aortic valve replacement (tissue valve also with CABG x 27 Apr 2021) Confirmed Active Hyperlipidemia Confirmed Active Hypertension Confirmed Active Impaired glucose tolerance Confirmed Active Inguinal hernia 2 Confirmed 12/01/07 Active LBBB - Left bundle branch block Confirmed 1999 Active Tubular adenoma of colon ( x2 Feb 2023) Confirmed Active 1mod-severe based on echo spring 2010 2right side Vital Signs Most recent to oldest [Reference Range]: 1 Height 168 cm (03/09/24 9:01 AM) Weight 87.3 kg (03/09/24 9:01 AM) Oxygen Saturation [94-100 %] 98 % (03/09/24 9:01 AM) Pulse Rate [55-90 bpm] 70 bpm (03/09/24 9:01 AM) Body Mass Index [18.5-24.99 kg/m2] 30.93 kg/m2 *>HHI* (03/09/24 9:01 AM) Blood Pressure [90-138/55-84 mm Hg] 121/ 77mm Hg (03/09/24 9:01 AM) Blood pressure sites Arm, left (03/09/24 9:01 AM) Social History Social History Type Response Smoking Status Former smoker; Other : quit smoking in ; entered on: 10/04/14 Sex Sex Representation Male (finding) Note * Mercedes Araya [place]: PERFORM Event Display: Patient Education/Instruction Authored Date: Ambulatory Adult Visit Summary [facility] [address] [place] [address] Name: STEVEN HICKS : 1955?? Visit: 03/09/2024 08:54?? Ambulatory Visit Instructions ?? Your Care Team Primary Care Provider Benjamín Lopes MD? This Visit Provider Benjamín Lopes MD Your Diagnosis Pain in the abdomen Vitals Signs Pulse Rate: 70 bpm Height: 168 cm Systolic Blood Pressure: 121 mm Hg Weight: 87.3 kg Diastolic Blood Pressure: 77 mm Hg Body Mass Index:??30.93 kg/m2??Critical Oxygen Saturation: 98 % Body surface area: 2.02 What to do next Follow-Up Appointments Follow Up with??Benjamín Lopes MD When:??09/21/2024 07:00 AM EDT Why: PHYSICAL?? Where: [address] [place] [address]- Future Orders US RUQ, Routine, Reason for Exam: Cholecystitis, Once, *Est. 03/09/24 Basic Metabolic Panel - Routine, Once, 09/09/23 20:45:00 EDT, Order for Today, [facility], Blood?? Lipid Panel - Routine, Once, 09/09/23 20:45:00 EDT, Order for Today, [facility], Blood?? Medications The list below reflects the information in our records and provided by you today along with any changes made during this visit. Please continue your medications until treatment is completed or stopped by your provider. If this is different from the information you have or there are other questions,please contact the prescribing provider. What How Much When Instructions Unchanged Albuterol (ProAir HFA 90 mcg/ inh inhalation aerosol withadapter) 1 puff(s) Inhalation Every 4 hours as needed for Wheezing/Shortness of Breath Unchanged Alprazolam (ALPRAZolam 0.25 mg oral tablet) 1 tab(s) Oral Daily Duration: 30 Days Unchanged Aspirin (aspirin 325 mg oral tablet) 1 tab(s) Oral Every 4 hours Unchanged Ipratropium Nasal (ipratropium nasal 42 mcg/ inh spray) 1 spray(s) Nares, Both 3 times a day Unchanged Metoprolol (metoprolol 100 mg oral tablet, extended release) 1 tab(s) Oral Daily Unchanged olodaterol-tiotropium (Stiolto Respimat 60 ACT 2.5 mcg-2.5 mcg/ inh inhalation aerosol) 2 puff(s) Inhalation Every 24 hours Unchanged Pantoprazole (pantoprazole 40 mg oral delayed release tablet) 1 tab(s) Oral Daily Unchanged roflumilast (roflumilast 500 mcg oral tablet) 1 tab(s) Oral Daily Unchanged Rosuvastatin (rosuvastatin 40 mg oral tablet) 1 tab(s) Oral Daily changed from 20 mg tablets ?? Medications and Immunizations Administered Medications Given During Visit No medications given during this visit.?? Allergies (NKA means No Known Allergies) Lipitor Zithromax sulfa drugs Common Emergency Awareness Tips IS IT A STROKE? Act FAST and Check for these signs: FACE Does the face look uneven? ARM Does one arm drift down? SPEECH Does their speech sound strange? TIME Call at any sign of stroke ?? Heart Attack Signs Chest discomfort: Most heart attacks involve discomfort in the center of the chest and lasts more than a few minutes, or goes away and comes back. It can feel like uncomfortable pressure, squeezing, fullness or pain. Discomfort in upper body: Symptoms can include pain or discomfort in one or both arms, back, neck, jaw or stomach. Shortness of breath: With or without discomfort. Other signs: Breaking out in a cold sweat, nausea, or lightheaded. Remember, MINUTES DO MATTER. If you experience any of these heart attack warning signs, call to get immediate medical attention! ?? Smoking can increase your chances of developing chronic health problems and can cause harmful effects to other family members in your house. If you smoke, you are strongly encouraged to quit. Please call [employer] Link at [phone] or [phone] ([phone]) or log in to [email or web address] for referrals to smoking cessation programs. ?? The National Suicide Prevention Hotline is available 17/11 if you or someone you know needs to find a reason to keep living. By calling 8-338-890-[employer] (6152) you'll be connected to a skilled, trained counselor at a crisis center in your area. [facility] [employer] Portal You can view and manage your care through the patient portal or by using a health care jeanna of your choosing. [employer] is a website that allows you to securely view your medical information including your hospital discharge summary, office visit summaries, medications and follow-up visits. You can also request appointments, renew medications, and request access to your medical information using a health care jeanna of your choosing, or just ask a question. You can enroll at [email or web address] or register during your next office visit. [facility], in keeping with [facility] guidance, no longer requires face masks for staff, patientsor visitors in most situations. Similiar to time spent indoors at other locations, there is the chance that you were exposed to repiratory viruses during your time with us (such as flu or COVID-19). If you develop symptoms concerning for a viral respiratory infection, please seek testing (and treatment if indicated) from your medical provider or home test kit. ?? Disclaimer: The information provided is of a general nature and is intended to be used in conjunction with the recommendations and advice of your health care practitioner. Every effort has been made to ensure that the information provided is accurate and complete at the time it is provided to you however, as your needs change, or, as new information becomes available, different or additional instructions may be required. ?? If you have questions, please consult with your primary care provider or pharmacist, as appropriate. This information is not intended to serve as substitution for assessment and evaluation by a qualified health care provider. If you do not have a primary care provider, you may find a [facility] [employer] provider by calling [employer] Link at [phone]. Patient Care team information Care Team Personnel Name: Cindi Vizcaino RN Position: [facility] RN Member Role: Primary Care Nurse Name: Sonali Haider RN Position: S RN Member Role: Primary Care Nurse Name: Benjamín Lopes MD Position: S Physician - Primary Care Member Role: PCP Address: [address] [place] [address] Telecom: Name: Letty Maciel RN Position: S RN Member Role: Primary Care Nurse Name: Iris Caicedo RN Position: S RN Member Role: Primary Care Nurse Care Team Related Persons Name: NUVIA KELLOGG Name: JACLYN HICKS Insurance Providers Guarantor [facility] Information #: 1 Payer: [facility] [employer] Member Number: [id number] Policy Number: NA Group Number: [id number] Health Plan Information #: 2 Payer: [facility] [employer] Member Number: [id number] Policy Number: NA Group Number: [id number]
--- OUTSIDE RECORDS SUMMARY | 2024-04-06 10:19 | XMS_ITS | Continuity of Care Document ---
Author Organization [place] [facility], [facility] Address [address] [place] [address] Care Team Providers Care Type Casting Machine Operator Name Role Phone VERA GAN Primary Care [...] mcg/actua tion nasal spray,wilbur pension 2023 024 [facility]/Pharmacy #[id number], [address] [place], [address], 02/04/2024 10:01:03 Patient TargetsNo targets recorded. Patient InstructionsNo instructions recorded. Reason for Referral None Reported. Problems Name Problem SNOMED Code Status Onset Date Resolution Date Notes Provider Name and Address Organization Details Recorded Time Subjectiv e tinnitus 80000964 Active 2014 Tinnitus; Note: Date Diagnosed : 12/06/2014 3:12 PM (388.31) Not Available [facility] 4 02:47:40 Mass of neck 135884678 Active 2017 Localized swelling, mass and lump, neck; Note: Date Diagnosed : 11/04/2017 5:20 PM (R22.1) Not Available [facility] 4 02:47:39 Neck swelling 272141878 Active 2017 Localized swelling, mass and lump, neck; Note: Date Diagnosed : 11/04/2017 5:20 PM (R22.1) Not Available [facility] 4 02:47:39 Allergic rhinitis caused by pollen 71316915 Active 2014 Allergic rhinitis: Pollinosi s; Note: Date Diagnosed : 12/06/2014 2:41 PM (477.0) Not Available [facility] 4 02:47:35 Sensorine ural hearing loss of bilateral ears 292551579 Active 2014 Sensorine ural HL, bilateral ; Note: Date Diagnosed : 12/06/2014 3:12 PM (389.18) Not Available [facility] 4 02:47:38 Localized swelling, mass and lump, neck Active 2014 Swelling/ mass, neck; Note: Date Diagnosed : 12/06/2014 2:41 PM (784.2) Not Available [facility] 4 02:47:39 Asthma 528113600 Active 2014 Asthma; Note: Date Diagnosed : 12/06/2014 2:41 PM (493.90) Not Available [facility] 4 02:47:37 Allergic rhinitis 16197484 Active 2017 Other allergic rhinitis; Note: Date Diagnosed : 11/04/2017 4:15 PM (J30.89) Not Available [facility] 4 02:47:36 Bilateral disorder of Eustachia n tubes 18143515551 41426 Active 2017 Other specified disorders of Eustachia n tube, bilateral ; Note: Date Diagnosed : 11/04/2017 4:15 PM (H69.83) Not Available [facility] 4 02:47:36 Nasal congestio n 24681450 Active 2023 LISA PASTOR MD [address] [place] [address],[place] [address], [place], [address] , [place] - [facility] 4 09:53:09 Recurrent acute sinusitis 092899610 Active 2023 LISA PASTOR MD [address] [place] [address],[place] [address], [place], [address] , [facility] 4 09:53:15 Bilateral tinnitus 73847392414 02 Active 2023 LISA PASTOR MD [address] [place] [address], [facility] [place], [address] , [facility] 4 10:00:28 Problem Notes None recorded. Procedures Surgical History Date Name Laterality Status Provider Name and Address Organization Details Recorded Time 02/04/2024 NasalEndos copy_DP completed LISA PASTOR MD [address] [place] [address], [place], [address], [facility] 02/04/2024 10:00:05 Imaging Results None recorded. Procedure Notes None recorded. Medical Equipment None Reported. Allergies Allergen ID Allergen Name Allergen Category Reaction Reaction Severity Criticality Documentation Date Start Date Code Code System Note Provider Name and Address Organization Details Recorded Time 763334 Substance with sulfonami de structure and antibacte rial mechanism of action (substanc e) medicatio n other Not available Not available 09/08/2023 98575 8003 SNOMED React ion: unkno wn, unspe cifie d;; Not Available [facility] 4 01:16:46 Medications Name Sig Start Date Stop Date Status Note LastModified by Organization Details LastModified Time Singulair 10 mg tablet Take 1 tablet by mouth once a day active Medicati on ID: [id number] D uration Value: 30 Brand Name: Harshad [...] as directed 2017 active Medicati on ID: [id number] P caitlyn [place] By Name: Koby Gabriel MD Brand Name: edilma lutz Send Method: E-Prescr ibed Sub s Allowed: [...] mg tablet 2014 active Medicati on ID: 53807 Du ration Value: 30 Brand Name: Crestor Send Method: E-Prescr ibed Sub s Allowed: subs OK Speci al Instruct ion: TAKE 1 TABLET BY MOUTH DAILY AT BEDTIME Medicati onGeneri cName: Crestor Not Available Not Available Not Available albuterol sulfate 11/04 completed Medicati on ID: 75504 Du ration Value: 30 Reason: () Brand [...] inhalatio n 11/04 completed Medicati on ID: 82757 Du ration Value: 30 Reason: () Brand Name: Combiven t Respimat Send Method: E-Prescr ibed Sub s Allowed: subs OK Speci al Instruct ion: 1 PUFF(S) 4 TIMES A DAY INHALED 30 DAY(S) Luli Roman Name: Combiven t Respimat Not Available Not [...] Updated DateTime 02/04/2024 170.18 cm 29.4 kg/m2 71279.37 g Camilo Pulido [place] - [facility] 02/04/2024 09:38:44 Social History None recorded. Functional Status None recorded. Mental Status None recorded. Family History Nothing Reported. Medical History No medical history recorded. Past Encounters Encounter ID Performer Location Encounter Start Date Encounter Closed Date Diagnosis/Indication Diagnosis SNOMED-CT Code Diagnosis ICD10 Code [id number] LISA PASTOR MD [facility] on [address] [place] [address] 02/04/2024 08:49:33 02/04/2024 10:04:57 Nasal congestion 46465477 R09.81 Recurrent acute sinusitis 983565786 J01.91 Bilateral tinnitus 92185 02524 102 H93.13 Health Concerns Section Related Observation LastModified by Organization Detai ls LastModified Time None Recorded Concern Status LastModified by Organization Details LastModified Time None Recorded Payers Encounter Date Sequence Insurance Name Policy Number Policy Prince Covered Member ID Prince Member ID Guarantor Name 02/04/2024 1 [facility] [id number] Palomo Nieves [id number] Palomo Nieves Notes Date Note Type Note [...] He does not smoke. LISA PASTOR MD [address] [place] [address], [address], [facility] - [facility] 02/04/2024 10:12:26
--- OUTSIDE RECORDS SUMMARY | 2024-04-06 10:19 | XMS_ITS | Patient Health Record ---
Author Organization [employer] Address [address] [place] [address] Support Name Relationship Address Phone ChitopiterPalomo moss Guarantor Unknown Allergies Allergen (clinical drug ingredient) Drug/Non Drug Allergy documented on EMR Reaction Allergy Type Onset Date Status atorvastatin Lipitor Unknown Drug Allergy Acti ve Substance with sulfonamide structure and antibacterial mechanism of action (substance) Sulfa Antibiotics Unknown Drug Allergy Active Reason For Referral No Information Medications Medication SIG (Take, Route, Frequency, Duration) Notes Start Date End Date Status Spiriva Respimat 2.5 MCG/ACT 2 puffs Inhalation Once a day Active Symbicort Active Clopidogrel Bisulfate 75 MG 1 tablet Ora lly Once a day Active Metoprolol Succinate ER 100 MG 1 tablet Orally Once a day Active Aspirin 81 Active Rosuvastatin Calcium 40 MG 1 tablet Oral ly Once a day Active Social History Tobacco Use: Social History Observation Description Date Details (start date - stop date) Former Smoker NA - NA Tobacco Use/Smoking Question Answer Notes Are you a former smoker Alcohol Screen (Audit-C) Question Answer Notes Did you have a drink containing alcohol in the p ast year? No Points 0 Interpretation Negative Plan Of Treatment No Information Medical (General) History Medical History History ICD Code hypertension hyperlipidemia COPD and sees Dr. Brown gall bladder stones and sees Dr. Aniyah chiang Surgical History Surgery Date(Month/Year) Inspiris Thomas aortic valv e replacement, Dr. Kirk, [facility] 05/03/21
== END 2024-04-01 15:18 | disposition home or self-care (01) ==
PROVIDERS: PCP Internal Medicine; Visit Provider Hospitalist
DX: J44.9 Chronic obstructive pulmonary disease, unspecified (principal); J30.9 Allergic rhinitis, unspecified
CPT/HCPCS: 99214

== ENCOUNTER 2025-03-31 10:13 | Outpatient (AMB) | payer OTHER, SELFPAY ==
[2025-03-31 10:15] VITALS: BP 138/70; PULSE 60; O2SAT 99; BMI 31.2
--- NOTE | 2025-03-31 10:15 | MHC.OFFVIS ---
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 overall he had a good summer working outside. Usually his respiratory symptoms worsen during the winter time. Has had some intermittent coughing nonproductive in nature. Also has chest tightness and wheezing mild in severity. He has not had to use his rescue inhaler more than twice a week. Therefore, will start optimizing his respiratory therapy with his albuterol and budesonide nebulizer therapy as well as continue with the Symbicort. The patient has not had any recent imaging her blood work to review. 09/04/2022 the patient is here for a pulmonary follow-up visit. The overall patient is still complaining of significant shortness of breath and chest tightness. We did try the new inhaler Breztri. The patient did not tolerated making cough more. Therefore he stopped it. He does respond better to the nebulized therapy. He has been using the DuoNebs between 3 to 4 times a day. This is okay for him to do but he is not using any inhaled steroids. He does have increased wheezing on examination. Moderate severity. He has increased coughing and chest congestion. He is wondering about a percussion vest. I did provide him with budesonide and will send additional prescription to the pharmacy. The patient also needs CPT with flutter valve. I did about having a row because that he could use. He is going to start using it especially every times use the nebulizer. He will come back in a few months. I am hoping that the addition of budesonide with DuoNeb along with CPT with flutter valve allows him to stay at [place]. If however he has any worsening symptoms he call the office so we can further evaluate. 12/04/2022 the patient is here for a pulmonary follow-up visit. She feels like is getting worse. The shortness of breath with minimal activity. He is requesting a placard form. We did do spirometry in the office. His FEV1 significantly decreased to 0.76 L. In regards of her respiratory therapy the patient has been using Symbicort. The other inhalers have not been effective for. Symbicort seems to work best and also his nebulized therapy. He had 1 location [place] the beach and had a level setting some difficulty breathing had respiratory distress. EMS was called to the scene. The patient did improve after using his nebulizer. Does not a functional nebulizer at this time. He has been buying his daughters. Therefore, the provide him with a nebulizer before he left. To further optimize his respiratory therapy will have him get blood work. He has already had allergy testing in the past will go ahead and repeated. In view of the significant abnormal spirometry an obstructive ventilatory defect will also request pulmonary function studies. His last chest x-ray from July 2021 demonstrating no acute disease. Patient is wondering what other potential therapies he can consider specially since he feels it is getting worse. Explained to him that after reviewing the blood work will see if he is a candidate for biologic therapy. And could be a good candidate for lung volume reduction intervention based on his significant chronic bronchitis. 03/06/2023 the patient is here for pulmonary follow-up visit. The patient is feeling a lot better. He went to [place] he was placed on Stiolto. Seems to be tolerating the inhaler very well. He is also using the budesonide at nighttime. Also seems to be helping as well. He also started Daliresp. He is tolerating the Daliresp 250 mcg dose. Will go ahead increase it to the 500 mcg dose to make it more therapeutic. He has also lost some weight that is also going to help his breathing. The patient continues to have some wheezing on examination although better. Again he is aware that he has severe obstruction of the airways. 04/01/2024 the patient is here for a pulmonary follow-up visit. Overall the patient has been doing well. Although recently he had an episode of tremors and fatigue along with dyspnea. 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 He had an urgent pacemaker placement at [facility]. Then they maintain they washed were him for because of the tremors. Since that she has been exercising on treadmill. He had 1 episodes where heart rate increased became concerned. In the office we did go for a walking oximetry and the patient maintain a pulse ox within normal limits in the heart rate did increase from 75 to about 90. My question is if this is from the pacemaker if he is actually able to have a normal sinus mechanism. Specially if the heart block was transient. Still from a respiratory status he continues on the Stiolto. Will go ahead and drop the Daliresp to 250 mcg since the 500 causes him to have some difficulty sleeping. If he has any difficulty with his breathing as we cut it down he can always call to go back up to the therapeutic dose. He will continue with Stiolto as prescribed. He also has his nebulized therapy. Will follow-up in 8-10 months. If she has any issues prior to that he will call for an earlier assessment. 03/31/2025 the patient is here for pulmonary follow-up visit. Overall the patient has been doing well. He continues on the Stiolto. Has not had to use his nebulizer therapy which is reassuring. The patient actually been doing a lot better since he stopped working in the [employer] and [employer] business. He continues to stay busy. The patient also ran out of the Daliresp and he seemed to be doing okay without it so we like to hold off at this time which is reassuring. His respiratory exam is reassuring as well. No significant wheezing rhonchi or crackles. Will plan to repeat an x-ray in the next several months. I will give him a x-ray order he can have it done whenever he likes. Otherwise the patient will continue with his current respiratory therapy. He is going to always vaccines necessary. He will follow-up next year. If any issues arise she can always call for further recommendations. [facility] Medical History (Updated 03/10/21 @ 21:25 by Morgan Brown MD) Aortic stenosis COVID-19 Chronic allergic rhinitis GERD (gastroesophageal reflux disease) Asthma-COPD overlap syndrome Family History (Updated 02/14/20 @ 21:11 by Morgan Brown MD) Other Asthma Social History Patient Tobacco Use Status: Former Tobacco user Tobacco use type: Cigarette Years Smoked: 28 years Review of Systems Const Denies night sweats ENT Denies change in voice, Denies lip swelling, Denies mouth pain, Reports nasal congestion, Reports nasal discharge and Denies tongue swelling Card Denies chest pain, Denies dyspnea and Reports dyspnea on exertion Resp Denies chest congestion, Reports cough, Denies dyspnea, Reports dyspnea on exertion and Denies wheezing GI Reports no additional complaints, Reports dyspepsia and Denies heartburn Musc Reports as per HPI, Reports arthralgias and Reports joint swelling Neuro Denies Neuro-related abnormal movements Psych Denies no additional complaints Randal/Lymph Denies easy bleeding and Denies lymphadenopathy Aller/Immun Denies lip swelling, Denies tongue swelling and Denies wheezing Physical Exam Vital Signs: Last Vital Signs Pulse 60 03/31/25 10:15 BP 138/70 03/31/25 10:15 Pulse Ox 99 03/31/25 10:15 Oxygen Delivery Method Room Air 03/31/25 10:15 BMI result Body Mass Index 31.2 Const General: alert Eyes Pupils: Equal, round and reactive pupils present Neck Neck: Yes normal visual inspection, Yes full ROM and Yes no lymphadenopathy Chest Chest palpation & inspection: normal inspection of the chest Resp Auscultation: no rales, no rhonchi, no wheezes and diminished lung sounds Cardio Rate: regular rate Rhythm: regular rhythm Heart sounds: S1 normal heart sound present, S2 normal heart sound present and Murmur heart sound present GI Palpation (GI): Soft to palpation and nontender Auscultation: normal bowel sounds General: Yes no CVA tenderness Back/Spine/Pelvis Back: no CVA tenderness Skin General skin exam: rashes and/or lesions noted Neuro Cranial nerves: Yes Equal, round and reactive pupils present Assessment & Plan Assessment & Plan (1) Asthma-COPD overlap syndrome: Code(s): J44.9 - Chronic obstructive pulmonary disease, unspecified Category: Medical (2) Chronic allergic rhinitis: Code(s): J30.9 - Allergic rhinitis, unspecified Category: Medical Plan Duoneb as needed continue stiolto BUdesonide daily CPT with aerobika valve holding Daliresp F/U 10-12 months Orders: Orders XR chest 2V 03/31/25 J44.9 - Chronic obstructive pulmonary disease, unspecified Medications: New ipratropium bromide administer into each nostril 2 sprays intranasal TID PRN 15 mL 6RF allergy symptoms albuterol sulfate 90 mcg/actuation 2 inhalations inhalation Q6H PRN 18 grams 12RF shortness of breath or wheezing 30 days J44.9 - Chronic obstructive pulmonary disease, unspecified Refilled tiotropium-olodaterol 2.5-2.5 mcg/actuation (Stiolto Respimat) 2 puffs inhalation DAILY 3 ea 3RF 90 days Coding Level of Care Code Est Pt Level 4 (48679) Diagnoses Asthma-COPD overlap syndrome J44.9 Chronic allergic rhinitis J30.9 Time Spent (min) 16
== END 2025-03-31 10:34 | disposition home or self-care (01) ==
LOC: HO.HPS 10:13
PROVIDERS: PCP Internal Medicine; Visit Provider Hospitalist
DX: J44.9 Chronic obstructive pulmonary disease, unspecified (principal); J30.9 Allergic rhinitis, unspecified
CPT/HCPCS: 99214